=== PATIENT | female | born 2000 | race African-American/Black ===

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

== ENCOUNTER 2018-10-30 20:41 | Emergency (ER) | payer SELFPAY ==
[~2018-10-30] VITALS: Ht 162.6 cm; Wt 99.8 kg
[~2018-10-30 20:41] MED LIST: AMOX1TAB61 PO; AZIT250T6 PO; IBUP-1060 PO; PRED-220 PO
[2018-10-30 21:03] VITALS: BP 137/104
[2018-10-30] MEDS ORDERED: AMOX500T PO (22:42)
--- NOTE | 2018-10-30 22:43 | PHYS DOC ---
Past Medical History Past Medical History: No Pertinent History, Other Additional Past Medical Histor: scoliosis (KEO FLORES APRN) Past Surgical History: No Surgical History (KEO FLORES APRN) Alcohol Use: None Drug Use: None (KEO FLORES APRN) Adult General Chief Complaint Chief Complaint: RINGING IN EARS [facility] HPI Patient is a 18 year old [female] who presents with [left ear ringing. Patient reports she started to have ringing in her ear earlier today, reports she has not had this in the past. Reports she only years in her left ear. States that when the discomfort. States when she is driving however she feels the ringing in both of her ears. Denies fever, denies recent illness, denies cough, does report she does have a little pain in her throat.] (KEO FLORES APRN) Review of Systems Review of Systems Constitutional: Denies fever or chills [] Eyes: Denies change in visual acuity, redness, or eye pain [] HENT: Denies nasal congestion or sore throat Reports some ringing in her left ear[] Respiratory: Denies cough or shortness of breath [] Cardiovascular: No additional information not addressed in HPI [] GI: Denies abdominal pain, nausea, vomiting, bloody stools or diarrhea [] : Denies dysuria or hematuria [] Musculoskeletal: Denies back pain or joint pain [] Integument: Denies rash or skin lesions [] Neurologic: Denies headache, focal weakness or sensory changes [] Endocrine: Denies polyuria or polydipsia [] All other systems were reviewed and found to be within normal limits, except as documented in this note. (KEO FLORES APRN) Allergies Allergies Allergies Coded Allergies Type Severity Reaction Last Updated Verified No Known Drug Allergies 01/19/16 No (ANGUS MERA DO) Physical Exam Physical Exam Constitutional: Well developed, well nourished, no acute distress, non-toxic appearance. [] HENT: Normocephalic, atraumatic, bilateral external ears normal, oropharynx moist, no oral exudates, nose normal. Tonsils 2+, without purulence. Submental lymph nodes minimally swollen, no tenderness. Left TM with minimal erythema @ 11:00 position [] Eyes: PERRLA, EOMI, conjunctiva normal, no discharge. [] Neck: Normal range of motion, no tenderness, supple, no stridor. [] Cardiovascular:Heart rate regular rhythm, no murmur [] Lungs & Thorax: Bilateral breath sounds clear to auscultation [] Abdomen: Bowel sounds normal, soft, no tenderness, no masses, no pulsatile masses. [] Skin: Warm, dry, no erythema, no rash. [] Back: No tenderness, no CVA tenderness. [] Extremities: No tenderness, no cyanosis, no clubbing, ROM intact, no edema. [] Neurologic: Alert and oriented X 3, normal motor function, normal sensory function, no focal deficits noted. [] Psychologic: Affect normal, judgement normal, mood normal. [] (KEO FLORES APRN) Current Patient Data Vital Signs Vital Signs Date Time Temp Pulse Resp B/P (MAP) Pulse Ox O2 Delivery O2 Flow Rate FiO2 10/30/18 21:03 98.9 81 16 137/104 (115) 99 Room Air 98.9 (ANGUS MERA DO) Lab Values Laboratory Tests Test 10/30/18 21:54 Group A Streptococcus Rapid Negative (NEGATIVE) Microbiology 10/30/18 Throat Culture - Final, Complete 10/30/18 - Final, Complete (ANGUS MERA DO) EKG EKG [] (KEO FLORES APRN) Radiology/Procedures Radiology/Procedures [] (KEO FLORES APRN) Course & Med Decision Making Course & Med Decision Making Pertinent Labs and Imaging studies reviewed. (See chart for details) [] (KEO FLORES APRN) Dragon Disclaimer Dragon Disclaimer This electronic medical record was generated, in whole or in part, using a voice recognition dictation system. (KEO FLORES APRN) Departure Departure Impression: Primary Impression: Otitis media Disposition: 01 HOME, SELF-CARE Condition: GOOD Referrals: NO PCP (PCP) Patient Instructions: Otitis Media, Adult Additional Instructions: You can take tylenol / ibuprofen for the discomfort as well You should take the antibiotic until it is gone - three times a day for 10 days If you keep having problems, follow up with your primary care provider for further evaluation Scripts Amoxicillin (AMOXICILLIN) 500 Mg Tablet 1 TAB PO TID, #30 TAB Prov: KEO FLORES APRN 10/30/18 Attending Signature Attending Signature I have reviewed the PA/FOOD CART ATTENDANT's note and plan of care. I was available for consultation as needed during the patient's visit in the emergency department. I agree with the clinical impression, plan, and disposition. (ANGUS MERA DO) Problem Qualifiers Primary Impression: Otitis media Otitis media type: unspecified nonsuppurative Laterality: left Qualified Codes: H65.92 - Unspecified nonsuppurative otitis media, left ear KEO FLORES APRN October 30, 2018 22:43 ANGUS MERA DO Nov 04, 2018 06:47
== END 2018-10-30 22:48 | disposition home or self-care (01) ==
LOC: ER 20:41
DX: H65.92 Unspecified nonsuppurative otitis media, left ear (principal)
CPT/HCPCS: 87070; 87880; 99283

== ENCOUNTER 2018-11-06 16:33 | Emergency (ER) | payer SELFPAY ==
[~2018-11-06] VITALS: Ht 162.6 cm; Wt 99.8 kg
[~2018-11-06 16:33] MED LIST changes: +AMOX500T PO
[2018-11-06] MEDS ORDERED: IV NORMAL SALINE 1000ML BAG 1,000 ML IV SCH (16:49)
[2018-11-06] MEDS ORDERED: LIDO:MAALOX 1:1 20 ML SINGLE DOSE. SWSW ONE (17:00)
[2018-11-06] MEDS ORDERED: ONDANSETRON PF 4 MG/2 ML VIAL. IV ONE (17:00)
--- NOTE | 2018-11-06 17:00 | PHYS DOC ---
Past Medical History Past Medical History: Other Additional Past Medical Histor: scoliosis Past Surgical History: No Surgical History Additional Information: non smoker Alcohol Use: None Drug Use: None Adult General Chief Complaint Chief Complaint: ABDOMINAL PAIN HPI HPI Patient is a 18 year old female who presents with abdominal pain, epigastric pain that has been ongoing since last night. Epigastric pain started around 11:30 AM after she ate 2 hot dogs. States she also had this pain a couple months ago the pain is located in the right lower quadrant, and right upper quadrant. The patient states that she has no chance of , and is on her period. Rates her pain a 7 out of 10 describes as achy. Has not performed any interventions prior to coming to the ER. Review of Systems Review of Systems Constitutional: Denies fever or chills [] Eyes: Denies change in visual acuity, redness, or eye pain [] HENT: Denies nasal congestion or sore throat [] Respiratory: Denies cough or shortness of breath [] Cardiovascular: No additional information not addressed in HPI [] GI: Reports abdominal pain Denies nausea, vomiting, bloody stools or diarrhea [] : Denies dysuria or hematuria [] Musculoskeletal: Denies back pain or joint pain [] Integument: Denies rash or skin lesions [] Neurologic: Denies headache, focal weakness or sensory changes [] Endocrine: Denies polyuria or polydipsia [] Complete systems were reviewed and found to be within normal limits, except as documented in this note. Current Medications Current Medications Current Medications Medications (Trade) Dose Ordered Sig/Bautista Start Time Stop Time Status Last Admin Dose Admin Info (CONTRAST GIVEN -- Rx MONITORING) 1 each PRN DAILY PRN 11/06/18 17:45 11/08/18 17:44 Iohexol (Omnipaque 300 Mg/ml) 75 ml 1X ONCE 11/06/18 17:30 11/06/18 17:31 DC 11/06/18 17:41 75 ML Multi-Ingredient Mouthwash/Gargle (Gi Cocktail) 20 ml 1X ONCE 11/06/18 17:00 11/06/18 17:01 DC 11/06/18 17:10 20 ML Ondansetron HCl (Zofran) 4 mg 1X ONCE 11/06/18 17:00 11/06/18 17:01 DC 11/06/18 17:11 4 MG Sodium Chloride 1,000 ml @ 1,000 mls/hr Q1H 11/06/18 16:49 11/06/18 17:48 DC 11/06/18 17:10 1,000 MLS/HR Allergies Allergies Allergies Coded Allergies Type Severity Reaction Last Updated Verified No Known Drug Allergies 01/19/16 No Physical Exam Physical Exam Constitutional: Well developed, well nourished, no acute distress, non-toxic ap pearance. [] HENT: Normocephalic, atraumatic, bilateral external ears normal, oropharynx moist, no oral exudates, nose normal. [] Eyes: PERRLA, EOMI, conjunctiva normal, no discharge. [] Neck: Normal range of motion, no tenderness, supple, no stridor. [] Cardiovascular:Heart rate regular rhythm, no murmur [] Lungs & Thorax: Bilateral breath sounds clear to auscultation [] Abdomen: Bowel sounds normal, soft, tenderness to the RUQ, and RLQ. No rebound tenderness, no rovsing's sign, no masses, no pulsatile masses. [] Skin: Warm, dry, no erythema, no rash. [] Back: No tenderness, no CVA tenderness. [] Extremities: No tenderness, no cyanosis, no clubbing, ROM intact, no edema. [] Neurologic: Alert and oriented X 3, normal motor function, normal sensory function, no focal deficits noted. [] Psychologic: Affect normal, judgement normal, mood normal. [] Current Patient Data Vital Signs Vital Signs Date Time Temp Pulse Resp B/P (MAP) Pulse Ox O2 Delivery O2 Flow Rate FiO2 11/06/18 17:12 66 21 131/91 (104) 99 Room Air 11/06/18 16:39 98.9 98.9 Lab Values Laboratory Tests Test 11/06/18 16:45 11/06/18 16:57 Urine Collection Type Unknown Urine Color Red Urine Clarity Bloody Urine pH Urine Specific Leary Urine Protein mg/dL (NEG-TRACE) Urine Glucose (UA) mg/dL (NEG) Urine Ketones (Stick) mg/dL (NEG) Urine Blood (NEG) Urine Nitrite (NEG) Urine Bilirubin (NEG) Urine Urobilinogen Dipstick mg/dL (0.2 mg/dL) Urine Leukocyte Esterase (NEG) Urine RBC Tntc /HPF (0-2) Urine WBC 0 /HPF (0-4) Urine Squamous Epithelial Cells Few /LPF Urine Bacteria 0 /HPF (0-FEW) POC Urine HCG, Qualitative Hcg negative (Negative) White Blood Count 9.9 x10^3/uL (4.0-11.0) Red Blood Count 4.43 x10^6/uL (3.50-5.40) Hemoglobin 11.5 g/dL (12.0-15.5) L Hematocrit 35.4 % (36.0-47.0) L Mean Corpuscular Volume 80 fL (79-100) Mean Corpuscular Hemoglobin 26 pg (25-35) Mean Corpuscular Hemoglobin Concent 32 g/dL (31-37) Red Cell Distribution Width 14.5 % (11.5-14.5) Platelet Count 273 x10^3/uL (140-400) Neutrophils (%) (Auto) 61 % (31-73) Lymphocytes (%) (Auto) 30 % (24-48) Monocytes (%) (Auto) 7 % (0-9) Eosinophils (%) (Auto) 2 % (0-3) Basophils (%) (Auto) 0 % (0-3) Neutrophils # (Auto) 6.1 x10^3uL (1.8-7.7) Lymphocytes # (Auto) 2.9 x10^3/uL (1.0-4.8) Monocytes # (Auto) 0.7 x10^3/uL (0.0-1.1) Eosinophils # (Auto) 0.2 x10^3/uL (0.0-0.7) Basophils # (Auto) 0.0 x10^3/uL (0.0-0.2) Sodium Level 143 mmol/L (136-145) Potassium Level 4.1 mmol/L (3.5-5.1) Chloride Level 106 mmol/L (98-107) Carbon Dioxide Level 27 mmol/L (21-32) Anion Gap 10 (6-14) Blood Urea Nitrogen 8 mg/dL (7-20) Creatinine 0.8 mg/dL (0.6-1.0) Estimated GFR (Cockcroft-Gault) 110.7 BUN/Creatinine Ratio 10 (6-20) Glucose Level 87 mg/dL (70-99) Calcium Level 8.7 mg/dL (8.5-10.1) Total Bilirubin 0.1 mg/dL (0.2-1.0) L Aspartate Amino Transferase (AST) 55 U/L (15-37) H Alanine Aminotransferase (ALT) 38 U/L (14-59) Alkaline Phosphatase 70 U/L (46-116) Total Protein 7.6 g/dL (6.4-8.2) Albumin 3.5 g/dL (3.4-5.0) Albumin/Globulin Ratio 0.9 (1.0-1.7) L Lipase 96 U/L (73-393) Laboratory Tests 11/06/18 16:57 Laboratory Tests 11/06/18 16:57 EKG EKG [] Radiology/Procedures Radiology/Procedures []PATIENT: BARBER DE LA CRUZ DACCOUNT: [id number]#: [id number] : 2000 LOCATION: ER AGE: 18 SEX: F EXAM STATUS: REG ER ORD. PHYSICIAN: ANGUS TREVINO APRN REASON: UPPER abdominal pain SINCE LAST NIGHT PROCEDURE: CT ABD PELV W/ IV CONTRST ONLY EXAM: Abdomen and pelvis CT with intravenous contrast. HISTORY: Pain. TECHNIQUE: Computed tomographic images of the abdomen and pelvis were obtained following the administration of 75 cc Omnipaque 300 intravenous contrast. Multiplanar reformatting was performed. *One or more of the following individualized dose reduction techniques were utilized for this examination: 1. Automated exposure control. 2. Adjustment of the mA and/or kV according to patient size. 3. Use of iterative reconstruction technique. COMPARISON: None. FINDINGS: Evaluation of the lower thorax is unremarkable. There is slight hepatic steatosis along the gallbladder fossa. No suspicious hepatic lesion is seen. The gallbladder, pancreas and adrenal glands are unremarkable. The spleen is upper normal in size. The kidneys are unremarkable. The appendix is upper normal in caliber. However, there is no significant periappendiceal stranding to suggest appendicitis. There is no bowel obstruction. There is no lymphadenopathy. The urinary bladder, uterus and ovaries are unremarkable. There is trace pelvic free fluid, within physiologic limits for a premenopausal female. There is no suspicious osseous lesion. IMPRESSION: 1. Upper normal caliber appendix. There are no secondary findings to suggest appendicitis. 2. Otherwise, relatively unremarkable abdomen and pelvis CT. Electronically signed by: Chana Del Angel MD (11/06/2018 5:53 PM) [facility] PATIENT: BARBER DE LA CRUZ ACCOUNT: [id number] : 2000 LOCATION: ER AGE: 18 SEX: F EXAM STATUS: REG ER ORD. PHYSICIAN: ANGUS TREVINO APRN REASON: abdominal pain PROCEDURE: ABDOMEN LTD EXAM: Abdomen sonogram. HISTORY: Pain. TECHNIQUE: Sonographic imaging of the abdomen was performed. COMPARISON: None. FINDINGS: The liver is normal in size. No focal hepatic lesion is seen. The common bile duct is normal in caliber. The gallbladder is unremarkable. The right kidney is unremarkable. The pancreas and inferior cava are partially obscured due to bowel gas. IMPRESSION: 1. Obscured midline structures due to bowel gas. 2. Otherwise, unremarkable abdomen sonogram. Electronically signed by: Chana Del Angel MD (11/06/2018 6:48 PM) [facility] Course & Med Decision Making Course & Med Decision Making Pertinent Labs and Imaging studies reviewed. (See chart for details) Will get ultrasound of gallbladder, CT scan to evaluate appendicitis, labs, urine and give supportive care. Patient is agreeable. Labs are unremarkable, imaging is unremarkable with the exception of possible early appendicitis. Will have patient return to ER for reevaluation tomorrow of the appendicitis. Patient is agreeable. Discussed the importance of having this done to ensure that it does not turn into peritonitis. Patient verbalizes a greement. Dragon Disclaimer Dragon Disclaimer This electronic medical record was generated, in whole or in part, using a voice recognition dictation system. Departure Departure Impression: Primary Impression: Abdominal pain Disposition: HOME, SELF-CARE Condition: STABLE Referrals: NO PCP (PCP) Patient Instructions: Abdominal Pain, Possible Early Appendicitis Additional Instructions: Please return to ER if symptoms worsen. Come back to ER in 12 hours to have symptoms reevaluated for appendicitis. Nothing to Eat after midnight. Problem Qualifiers Primary Impression: Abdominal pain Abdominal location: generalized Qualified Codes: R10.84 - Generalized abdominal pain ANGUS TREVINO APRN Nov 06, 2018 17:00
[2018-11-06 17:03] LABS: BASO % 0 % (0-3); EOS # 0.2 x10^3/uL (0.0-0.7); EOS % 2 % (0-3); HEMATOCRIT 35.4 % (36.0-47.0); HEMOGLOBIN 11.5 g/dL (12.0-15.5); LYMPH # 2.9 x10^3/uL (1.0-4.8); LYMPH % 30 % (24-48); MEAN CORPUSCULAR HEMOGLOBIN 26 pg (25-35); MEAN CORPUSCULAR HGB CONC 32 g/dL (31-37); MEAN CORPUSCULAR VOLUME 80 fL (79-100); MONO # 0.7 x10^3/uL (0.0-1.1); MONO % 7 % (0-9); NEUT # 6.1 x10^3uL (1.8-7.7); NEUT % 61 % (31-73); PLATELET COUNT 273 x10^3/uL (140-400); RED BLOOD COUNT 4.43 x10^6/uL (3.50-5.40); RED CELL DISTRIBUTION WIDTH 14.5 % (11.5-14.5); WHITE BLOOD COUNT 9.9 x10^3/uL (4.0-11.0)
[2018-11-06 17:06] LABS: COLOR,URINE RED
[2018-11-06 17:07] LABS: CLARITY,URINE BLOODY
[2018-11-06 17:09] LABS: BACTERIA,URINE 0 /HPF (0-FEW); RBC,URINE TNTC /HPF (0-2); SQUAMOUS EPITHELIAL CELL,UR FEW /LPF; WBC,URINE 0 /HPF (0-4)
[2018-11-06 17:24] LABS: CALCIUM 8.7 mg/dL (8.5-10.1); CREATININE 0.8 mg/dL (0.6-1.0); GFR 110.7; POTASSIUM 4.1 mmol/L (3.5-5.1)
[2018-11-06 17:28] LABS: ALBUMIN 3.5 g/dL (3.4-5.0); ALBUMIN/GLOBULIN RATIO 0.9 (1.0-1.7); TOTAL BILIRUBIN 0.1 mg/dL (0.2-1.0); TOTAL PROTEIN 7.6 g/dL (6.4-8.2)
[2018-11-06] MEDS ORDERED: IOHEXOL 300 MG/ML 100ML VIAL. IV ONE (17:30)
[2018-11-06] MEDS ORDERED: CONTRAST GIVEN. MC PRN (17:45)
--- NOTE | 2018-11-06 17:56 | RAD ---
EXAM: Abdomen and pelvis CT with intravenous contrast. HISTORY: Pain. TECHNIQUE: Computed tomographic images of the abdomen and pelvis were obtained following the administration of 75 cc Omnipaque 300 intravenous contrast. Multiplanar reformatting was performed. *One or more of the following individualized dose reduction techniques were utilized for this examination: 1. Automated exposure control. 2. Adjustment of the mA and/or kV according to patient size. 3. Use of iterative reconstruction technique. COMPARISON: None. FINDINGS: Evaluation of the lower thorax is unremarkable. There is slight hepatic steatosis along the gallbladder fossa. No suspicious hepatic lesion is seen. The gallbladder, pancreas and adrenal glands are unremarkable. The spleen is upper normal in size. The kidneys are unremarkable. The appendix is upper normal in caliber. However, there is no significant periappendiceal stranding to suggest appendicitis. There is no bowel obstruction. There is no lymphadenopathy. The urinary bladder, uterus and ovaries are unremarkable. There is trace pelvic free fluid, within physiologic limits for a premenopausal female. There is no suspicious osseous lesion. IMPRESSION: 1. Upper normal caliber appendix. There are no secondary findings to suggest appendicitis. 2. Otherwise, relatively unremarkable abdomen and pelvis CT. Electronically signed by: Chana Del Angel MD (11/06/2018 5:53 PM) [facility]
--- NOTE | 2018-11-06 18:51 | RAD ---
EXAM: Abdomen sonogram. HISTORY: Pain. TECHNIQUE: Sonographic imaging of the abdomen was performed. COMPARISON: None. FINDINGS: The liver is normal in size. No focal hepatic lesion is seen. The common bile duct is normal in caliber. The gallbladder is unremarkable. The right kidney is unremarkable. The pancreas and inferior cava are partially obscured due to bowel gas. IMPRESSION: 1. Obscured midline structures due to bowel gas. 2. Otherwise, unremarkable abdomen sonogram. Electronically signed by: Chana Del Angel MD (11/06/2018 6:48 PM) [facility]
[2018-11-06 19:24] VITALS: BP 132/89
[2018-11-07] MEDS ORDERED: FAMO-63 PO (13:18)
== END 2018-11-06 19:31 | disposition home or self-care (01) ==
LOC: ER 16:33
DX: R10.11 Right upper quadrant pain (principal); R10.31 Right lower quadrant pain; R10.13 Epigastric pain
CPT/HCPCS: 36415; 74177; 76705; 80053; 81001; 81025; 83690; 85025; 96374; 99285; J2405; J7030; Q9967

== ENCOUNTER 2018-11-07 10:11 | Emergency (ER) | payer SELFPAY ==
[~2018-11-07] VITALS: Ht 162.6 cm; Wt 101.7 kg
[2018-11-07] MEDS ORDERED: IOHEXOL 240 MG/ML 50ML VIAL. PO ONE (11:00)
[2018-11-07] MEDS ORDERED: CONTRAST GIVEN. MC PRN (11:00)
[2018-11-07] MEDS ORDERED: IOHEXOL 300 MG/ML 100ML VIAL. IV ONE (11:00)
--- NOTE | 2018-11-07 11:08 | PHYS DOC ---
Past Medical History Past Medical History: Other Additional Past Medical Histor: scoliosis Past Surgical History: No Surgical History Alcohol Use: None Drug Use: None Adult General Chief Complaint Chief Complaint: ABDOMINAL PAIN HPI HPI Patient is a 18 year old female in the left medical history who presents to the ED today complaining with 3 out of 10 epigastric pain that has been going on sin ce yesterday. Patient describes the pain as sharp and intermittent. She states she was seen in the ED yesterday, was informed her appendix was large and requested to return to the ED today for follow-up CT. Patient denies any right lower quadrant pain. Denies any nausea vomiting. Denies any fever. Denies anything specifically exacerbating or relieving her pain. Review of Systems Review of Systems Constitutional: Denies fever or chills [] Eyes: Denies change in visual acuity, redness, or eye pain [] HENT: Denies nasal congestion or sore throat [] Respiratory: Denies cough or shortness of breath [] Cardiovascular: No additional information not addressed in HPI [] GI: Reports epigastric pain, denies nausea, vomiting, bloody stools or diarrhea [] : Denies dysuria or hematuria [] Musculoskeletal: Denies back pain or joint pain [] Integument: Denies rash or skin lesions [] Neurologic: Denies headache, focal weakness or sensory changes [] All other systems were reviewed and found to be within normal limits, except as documented in this note. Current Medications Current Medications Current Medications Medications (Trade) Dose Ordered Sig/Bautista Start Time Stop Time Status Last Admin Dose Admin Famotidine (Pepcid Vial) 20 mg 1X ONCE 11/07/18 11:15 11/07/18 11:16 DC 11/07/18 11:21 20 MG Info (CONTRAST GIVEN -- Rx MONITORING) 1 each PRN DAILY PRN 11/07/18 11:00 11/09/18 10:59 Iohexol (Omnipaque 240 Mg/ml) 30 ml 1X ONCE 11/07/18 11:00 11/07/18 11:01 DC 11/07/18 11:00 30 ML Iohexol (Omnipaque 300 Mg/ml) 75 ml 1X ONCE 11/07/18 11:00 11/07/18 11:01 DC Ondansetron HCl (Zofran) 4 mg 1X ONCE 11/07/18 11:15 11/07/18 11:16 DC 11/07/18 11:19 4 MG Sodium Chloride 1,000 ml @ 1,000 mls/hr 1X ONCE 11/07/18 11:15 11/07/18 12:14 DC 11/07/18 11:17 1,000 MLS/HR Allergies Allergies Allergies Coded Allergies Type Severity Reaction Last Updated Verified No Known Drug Allergies 01/19/16 No Physical Exam Physical Exam Constitutional: Well developed, well nourished, no acute distress, non-toxic appearance. [] HENT: Normocephalic, atraumatic, bilateral external ears normal, oropharynx moist, no oral exudates, nose normal. [] Eyes: PERRLA, EOMI, conjunctiva normal, no discharge. [] Neck: Normal range of motion, no tenderness, supple, no stridor. [] Cardiovascular:Heart rate regular rhythm, no murmur [] Lungs & Thorax: Bilateral breath sounds clear to auscultation [] Abdomen: Bowel sounds normal, soft, mild tenderness on palpation of the epigastric region, no right upper quadrant or right lower quadrant tenderness, negative Barker's, negative psoas sign, negative Rovsing sign. No guarding pain no rebound pain or tenderness no masses, no pulsatile masses. [] Skin: Warm, dry, no erythema, no rash. [] Back: No tenderness, no CVA tenderness. [] Extremities: No tenderness, no cyanosis, no clubbing, ROM intact, no edema. [] Neurologic: Alert and oriented X 3, normal motor function, normal sensory fu nction, no focal deficits noted. [] Psychologic: Affect normal, judgement normal, mood normal. [] Current Patient Data Vital Signs Vital Signs Date Time Temp Pulse Resp B/P (MAP) Pulse Ox O2 Delivery O2 Flow Rate FiO2 11/07/18 13:02 60 14 115/71 (86) 99 Room Air 11/07/18 10:25 98.7 98.7 Lab Values Laboratory Tests Test 11/07/18 10:22 11/07/18 11:07 POC Urine HCG, Qualitative Hcg negative (Negative) White Blood Count 6.4 x10^3/uL (4.0-11.0) Red Blood Count 4.46 x10^6/uL (3.50-5.40) Hemoglobin 11.4 g/dL (12.0-15.5) L Hematocrit 35.1 % (36.0-47.0) L Mean Corpuscular Volume 79 fL (79-100) Mean Corpuscular Hemoglobin 26 pg (25-35) Mean Corpuscular Hemoglobin Concent 33 g/dL (31-37) Red Cell Distribution Width 14.3 % (11.5-14.5) Platelet Count 259 x10^3/uL (140-400) Neutrophils (%) (Auto) 56 % (31-73) Lymphocytes (%) (Auto) 35 % (24-48) Monocytes (%) (Auto) 6 % (0-9) Eosinophils (%) (Auto) 2 % (0-3) Basophils (%) (Auto) 0 % (0-3) Neutrophils # (Auto) 3.6 x10^3uL (1.8-7.7) Lymphocytes # (Auto) 2.3 x10^3/uL (1.0-4.8) Monocytes # (Auto) 0.4 x10^3/uL (0.0-1.1) Eosinophils # (Auto) 0.1 x10^3/uL (0.0-0.7) Basophils # (Auto) 0.0 x10^3/uL (0.0-0.2) Sodium Level 140 mmol/L (136-145) Potassium Level 4.1 mmol/L (3.5-5.1) Chloride Level 106 mmol/L (98-107) Carbon Dioxide Level 28 mmol/L (21-32) Anion Gap 6 (6-14) Blood Urea Nitrogen 7 mg/dL (7-20) Creatinine 0.8 mg/dL (0.6-1.0) Estimated GFR (Cockcroft-Gault) 110.7 BUN/Creatinine Ratio 9 (6-20) Glucose Level 95 mg/dL (70-99) Calcium Level 8.5 mg/dL (8.5-10.1) Total Bilirubin 0.2 mg/dL (0.2-1.0) Aspartate Amino Transferase (AST) 70 U/L (15-37) H Alanine Aminotransferase (ALT) 92 U/L (14-59) H Alkaline Phosphatase 76 U/L (46-116) Total Protein 7.2 g/dL (6.4-8.2) Albumin 3.4 g/dL (3.4-5.0) Albumin/Globulin Ratio 0.9 (1.0-1.7) L Laboratory Tests 11/07/18 11:07 Laboratory Tests 11/07/18 11:07 EKG EKG [] Radiology/Procedures Radiology/Procedures []PROCEDURE: CT ABD PEL W/ORAL CONTRST ONLY Examination: CT ABD PEL W/ORAL CONTRST ONLY History: Enlarged appendix; follow-up. Comparison/Correlation: 11/06/2018 CT abdomen and pelvis with IV contrast Findings: Axial images of the abdomen and pelvis were obtained without IV contrast. Oral contrast was administered. Sagittal and coronal reformatted images were provided. Visualized lung bases are clear. Minimal linear scarring or atelectasis involves the left costophrenic sulcus. Unenhanced liver, spleen, pancreas, adrenal glands, and kidneys are normal. Urinary bladder is unremarkable. No extraluminal gas. No loculated abdominal or pelvic collections. Minimal pelvic free fluid in the cul-de-sac is present. Slightly high density of the gallbladder lumen which may represent vicarious excretion of contrast is noted. Appendix measures up to 0.7 cm in diameter. The proximal appendix is gas-filled. Distal appendix has small amount of fluid within it. No surrounding inflammatory findings. No bowel obstruction. Uterus is unremarkable on this noncontrast exam. Impression: Appendix is slightly more fluid-filled in the interval but within upper limits of normal for diameter. No surrounding inflammatory change. No conclusive findings for appendicitis. Correlate clinically in determining follow-up. No radiopaque collecting system calculi or collecting system distention. Minimal pelvic free fluid may be physiologic. PQRS Compliance Statement: One or more of the following individualized dose reduction techniques were utilized for this examination: 1. Automated exposure control 2. Adjustment of the mA and/or kV according to patient size 3. Use of iterative reconstruction technique Electronically signed by: Syd Marie MD (11/07/2018 12:27 PM) [id number] DICTATED and SIGNED BY: SYD MARIE MD DATE: 11/07/18 1227 Course & Med Decision Making Course & Med Decision Making Pertinent Labs and Imaging studies reviewed. (See chart for details) This is a 18-year-old female patient presenting to the ED today complaining of epigastric pain since yesterday. Patient was seen in the ED yesterday, had an ultrasound and CT done, CT was concerning for an enlarged appendix she was instructed to f/u with the Ed for repeat CT today, patient has no right lower quadrant pain Labs specifically CBC, with no WBC, CMP with slightly elevated liver enzymes AST [address] of the abdomen and pelvic Appendix is slightly more fluid-fi lled in the interval but within upper limits of normal for diameter. No surrounding inflammatory change. No conclusive findings for appendicitis. Correlate clinically in determining follow-up. Patient has no RLQ pain or tenderness on exam. Spoke with Dr. Sanders-he recommended f/u with PCP and gall bladder ultrasound, abdominal ultrasound was done yesterday gall bladder was normal. D/c to home f/u with PCP. Provided return precautions. Dragon Disclaimer Dragon Disclaimer This electronic medical record was generated, in whole or in part, using a voice recognition dictation system. Departure Departure Impression: Primary Impression: Epigastric pain Disposition: HOME, SELF-CARE Condition: STABLE Referrals: NO PCP (PCP) MECCA YUSUF MD follow up in 1 week Patient Instructions: Abdominal Pain Additional Instructions: You were seen for abdominal pain. Your CT was negative for appendicitis. Please follow up with your doctor next week or the provided doctor Scripts Famotidine (PEPCID) 20 Mg Tablet 20 MG PO DAILY, #14 TAB Prov: RADHIKA BLACK APRN 11/07/18 RADHIKA BLACK APRN Nov 07, 2018 11:08
[2018-11-07] MEDS ORDERED: ONDANSETRON PF 4 MG/2 ML VIAL. IV ONE (11:15)
[2018-11-07] MEDS ORDERED: IV NORMAL SALINE 1000ML BAG 1,000 ML IV ONE (11:15)
[2018-11-07] MEDS ORDERED: FAMOTIDINE 20 MG/2 ML VIAL IVP ONE (11:15)
[2018-11-07 11:22] LABS: BASO % 0 % (0-3); EOS # 0.1 x10^3/uL (0.0-0.7); EOS % 2 % (0-3); HEMATOCRIT 35.1 % (36.0-47.0); HEMOGLOBIN 11.4 g/dL (12.0-15.5); LYMPH # 2.3 x10^3/uL (1.0-4.8); LYMPH % 35 % (24-48); MEAN CORPUSCULAR HEMOGLOBIN 26 pg (25-35); MEAN CORPUSCULAR HGB CONC 33 g/dL (31-37); MEAN CORPUSCULAR VOLUME 79 fL (79-100); MONO # 0.4 x10^3/uL (0.0-1.1); MONO % 6 % (0-9); NEUT # 3.6 x10^3uL (1.8-7.7); NEUT % 56 % (31-73); PLATELET COUNT 259 x10^3/uL (140-400); RED BLOOD COUNT 4.46 x10^6/uL (3.50-5.40); RED CELL DISTRIBUTION WIDTH 14.3 % (11.5-14.5); WHITE BLOOD COUNT 6.4 x10^3/uL (4.0-11.0)
[2018-11-07 11:32] LABS: CALCIUM 8.5 mg/dL (8.5-10.1); CREATININE 0.8 mg/dL (0.6-1.0); GFR 110.7
[2018-11-07 11:37] LABS: ALBUMIN 3.4 g/dL (3.4-5.0); ALBUMIN/GLOBULIN RATIO 0.9 (1.0-1.7); TOTAL BILIRUBIN 0.2 mg/dL (0.2-1.0); TOTAL PROTEIN 7.2 g/dL (6.4-8.2)
[2018-11-07 11:39] LABS: POTASSIUM 4.1 mmol/L (3.5-5.1)
--- NOTE | 2018-11-07 12:30 | RAD ---
Examination: CT ABD PEL W/ORAL CONTRST ONLY History: Enlarged appendix; follow-up. Comparison/Correlation: 11/06/2018 CT abdomen and pelvis with IV contrast Findings: Axial images of the abdomen and pelvis were obtained without IV contrast. Oral contrast was administered. Sagittal and coronal reformatted images were provided. Visualized lung bases are clear. Minimal linear scarring or atelectasis involves the left costophrenic sulcus. Unenhanced liver, spleen, pancreas, adrenal glands, and kidneys are normal. Urinary bladder is unremarkable. No extraluminal gas. No loculated abdominal or pelvic collections. Minimal pelvic free fluid in the cul-de-sac is present. Slightly high density of the gallbladder lumen which may represent vicarious excretion of contrast is noted. Appendix measures up to 0.7 cm in diameter. The proximal appendix is gas-filled. Distal appendix has small amount of fluid within it. No surrounding inflammatory findings. No bowel obstruction. Uterus is unremarkable on this noncontrast exam. Impression: Appendix is slightly more fluid-filled in the interval but within upper limits of normal for diameter. No surrounding inflammatory change. No conclusive findings for appendicitis. Correlate clinically in determining follow-up. No radiopaque collecting system calculi or collecting system distention. Minimal pelvic free fluid may be physiologic. PQRS Compliance Statement: One or more of the following individualized dose reduction techniques were utilized for this examination: 1. Automated exposure control 2. Adjustment of the mA and/or kV according to patient size 3. Use of iterative reconstruction technique Electronically signed by: Syd Macario MD (11/07/2018 12:27 PM) [id number]
[2018-11-07] MEDS ORDERED: FAMO-63 PO (13:18)
[2018-11-07 13:30] VITALS: BP 106/67
== END 2018-11-07 13:38 | disposition home or self-care (01) ==
LOC: ER 10:11
DX: R10.13 Epigastric pain (principal)
CPT/HCPCS: 36415; 74176; 80053; 81025; 85025; 96374; 96375; 99285; J2405; J3490; J7030; Q9966